=== PATIENT | male | born 1985 | race Two or more races ===

== ENCOUNTER 2016-12-15 05:47 | Emergency (ER) | payer OTHER ==
[~2016-12-15] VITALS: Ht 177.8 cm; Wt 77.1 kg
[~2016-12-15 05:47] MED LIST: [UNRECOGNIZED DRUG - OTHER]; [UNRECOGNIZED DRUG - OTHER] PO
--- NOTE | 2016-12-15 06:00 | NUR ---
To bed 2 a 31 yo male bibself with c/o of chronic lower back pain at 8/10, worse today as he has difficulty ambulating, with history of herniated disc dx 10 years ago, positive CMS. Patient is aaox4. No s/s of acute distress. Breathing even and unlabored. Comfort measures initiated. Awaiting for er md berkowitz.
--- NOTE | 2016-12-15 06:40 | NUR ---
Dr Cannon at bedside.
[2016-12-15] MEDS ORDERED: HYDROCODONE/APAP 5/325MG 1 EACH TABLET ONE (06:47)
[2016-12-15] MEDS ORDERED: KETOROLAC TROMETHAMINE INJ 30 MG/ML VIAL ONE (06:47)
[2016-12-15] MEDS: HYDROCODONE/APAP 5/325MG 1 EACH TABLET PO ONE (06:57)
[2016-12-15] MEDS: KETOROLAC TROMETHAMINE INJ 60 MG/2 ML VIAL IM ONE (06:57)
--- NOTE | 2016-12-15 07:12 | NUR ---
Report given to michael OLEARY for [facility].
--- NOTE | 2016-12-15 07:23 | NUR ---
Patient on bed, awake. vss
[2016-12-15 07:55] LABS: APPEARANCE,URINE SL CLOUDY (CLEAR); BILIRUBIN,URINE NEGATIVE (NEGATIVE); BLOOD, URINE NEGATIVE Ery/uL (NEGATIVE); COLOR,URINE YELLOW (YELLOW); KETONES,URINE 1+ (NEGATIVE); LEUKOCYTE ESTERASE ,URINE NEGATIVE (NEGATIVE); NITRITE, URINE NEGATIVE (NEGATIVE); PROTEIN,URINE TRACE mg/dl (NEGATIVE); UGLUCOSE NEGATIVE (NEGATIVE)
[2016-12-15 08:00] LABS: RBC,URINE NONE SEEN /HPF (0-2)
[2016-12-15 08:01] LABS: ADD URINE CULTURE NO; BACTERIA,URINE Few /HPF (None Seen); SQUAMOUS EPITHELIAL CELL,UR Few /HPF (None Seen); WBC,URINE 0-2 /HPF (0-3)
[2016-12-15 08:15] VITALS: BP 110/70
--- NOTE | 2016-12-15 08:15 | NUR ---
Patient discharged to home in stable condition. Written and verbal after care instructions given. Patient verbalizes understanding of instruction.
== END 2016-12-15 08:17 | disposition home or self-care (01) ==
LOC: ER 05:51
DX: S39.012A Strain of muscle, fascia and tendon of lower back, initial encounter (principal); E78.5 Hyperlipidemia, unspecified; X58.XXXA Exposure to other specified factors, initial encounter; Y92.89 Other specified places as the place of occurrence of the external cause; Y93.89 Activity, other specified; Y99.8 Other external cause status
CPT/HCPCS: 81000-TC; A4606; J1885; Z7610

== ENCOUNTER 2017-01-07 10:53 | Emergency (ER) | payer OTHER ==
[~2017-01-07] VITALS: Ht 172.7 cm; Wt 68.0 kg
[2017-01-07 11:07] VITALS: BP 126/82
== END 2017-01-07 12:02 | disposition home or self-care (01) ==
LOC: ER 10:55
DX: H81.10 Benign paroxysmal vertigo, unspecified ear (principal); E78.5 Hyperlipidemia, unspecified
CPT/HCPCS: 99283; A4606; Z7610

== ENCOUNTER 2018-03-23 16:33 | Emergency (ER) | payer OTHER ==
[~2018-03-23] VITALS: Ht 172.7 cm; Wt 68.0 kg
[2018-03-23 16:35] VITALS: BP 122/76
== END 2018-03-23 17:39 | disposition home or self-care (01) ==
LOC: ER 16:34
DX: F41.0 Panic disorder [episodic paroxysmal anxiety] (principal); E78.5 Hyperlipidemia, unspecified; G89.29 Other chronic pain; F32.9 Major depressive disorder, single episode, unspecified; F41.9 Anxiety disorder, unspecified
CPT/HCPCS: 93005; 99284; A4606; Z7610

== ENCOUNTER 2018-05-23 21:55 | Emergency (ER) | payer OTHER ==
--- NOTE | 2018-05-23 23:35 | NUR ---
called for triage, no response, pt physically not in waiting room
== END 2018-05-23 23:47 | disposition home or self-care (01) ==
LOC: ER 21:57
DX: Z53.21 Procedure and treatment not carried out due to patient leaving prior to being seen by health care provider (principal)

== ENCOUNTER 2019-06-24 13:37 | Emergency (ER) | payer OTHER ==
[~2019-06-24] VITALS: Ht 172.7 cm; Wt 67.1 kg
[2019-06-24 13:45] VITALS: BP 122/88
[2019-06-24] MEDS ORDERED: LIDOCAINE VISCOUS 2% UD 15 ML UDC ONE (14:26)
[2019-06-24] MEDS ORDERED: IBUPROFEN 600 MG TABLET PO ONE (14:26)
[2019-06-24] MEDS ORDERED: IBUPROFEN 400 MG TABLET PO ONE (14:30)
[2019-06-24] MEDS ORDERED: LIDOCAINE VISCOUS 2% UD 15 ML UDC MM ONE (14:30)
== END 2019-06-24 15:21 | disposition home or self-care (01) ==
LOC: ER 13:37
DX: J02.9 Acute pharyngitis, unspecified (principal); G89.29 Other chronic pain; F32.9 Major depressive disorder, single episode, unspecified; F41.9 Anxiety disorder, unspecified; E78.5 Hyperlipidemia, unspecified
CPT/HCPCS: 86403-TC

== ENCOUNTER 2019-11-07 15:13 | Emergency (ER) | payer OTHER ==
[~2019-11-07] VITALS: Ht 172.7 cm; Wt 67.1 kg
--- NOTE | 2019-11-07 15:35 | NUR ---
ANXIETY, DEPRESSION, AND SUICIDAL THOUGHTS. REPORTS ATTEMPT TO SWALLOW PILLS (EXCEDRIN) PRODUCTION INSPECTOR, BUT WAS UNABLE TO. STATES HE HAS BEEN SEEKING HELP FOR A LONG TIME AND WOULD LIKE TO BE ADMITTED TO PSYCH VOLUNTARILY. DENIES HI, DENIES AUDIO/VISUAL HALLUCINATIONS. ALSO REPORTS SOME BACK PAIN FROM HERNIATED DISK. NO OTHER COMPLAINTS AT THIS TIME. PT IS AOX4, VSS, RR EVEN AND UNLABORED ON RA. NO ACUTE DISTRESS NOTED. SUICIDE PRECAUTIONS IMPLEMENTED: PT WANDED BY SECURITY, CHANGED TO GOWN, BELONGINGS REMOVED FROM BEDSIDE. SEEN BY SARA MTZ. READY FOR MD CONTRERAS.
--- NOTE | 2019-11-07 16:00 | NUR ---
Social service consult requested by CRN for suicidal ideations with a plan. SAVI and RN Kimbelryn met with the pt bedside. DITTO MACHINE OPERATOR introduced self and purpose of visit. Pt is alert and oriented x 4. Pt appears well groomed and is pleasant. Pt resides with his cousin at [id number] [place] [address] in [place]. Pt reports he is feeling depressed, suicidal and wants to get help. Pt reports to have a psychiatric diagnosis of Depression and Anxiety. Pt is not seeing a psychiatrist currently. Pt is unable to state the name of his medications and stated his cousin gets it from him. Pt denies any alcohol, drugs and tobacco use. Pt reports in the past he has been unable to get out of bed and has been feeling hopeless. Pt is willing to go voluntary to a psychiatric hospital. DITTO MACHINE OPERATOR contacted Cristobal and [facility] and initiated the transfer process. Per Cristobal they will have a bed available for the pt. DITTO MACHINE OPERATOR updated CRN Gener in ED. Clinicals to be faxed to [facility] intake when available. DITTO MACHINE OPERATOR provided pt with active listening and supportive counseling. No other social service needs are requested at this time.
--- NOTE | 2019-11-07 16:15 | NUR ---
URINE SENT TO STAT LAB
[2019-11-07 16:38] LABS: BASOPHILS # (AUTO) 0.1 /CMM (0.0-0.2); BASOPHILS % (AUTO) 1.2 % (0.0-2.0); EOSINOPHILS % (AUTO) 2.4 % (0.0-6.0); HEMATOCRIT 52 % (39-51); HEMOGLOBIN 17.6 g/dL (13.5-17.5); LYMPHOCYTES # (AUTO) 2.1 /CMM (0.8-4.8); LYMPHOCYTES % (AUTO) 32.1 % (20.0-44.0); MEAN CORPUSCULAR HGB CONC 34 g/dl (31.0-36.0); MEAN CORPUSCULAR VOLUME 93 fL (80-96); MONOCYTES # (AUTO) 0.4 /CMM (0.1-1.30); MONOCYTES % (AUTO) 6.3 % (2.0-12.0); NEUTROPHILS # (AUTO) 3.8 /CMM (1.8-8.9); PLATELET COUNT (AUTO) 258 /CMM (150-450); RED BLOOD CELL COUNT(AUTO) 5.64 MIL/uL (4.5-6.0); WHITE BLOOD COUNT (AUTO) 6.5 K/uL (4.3-11.0)
[2019-11-07 16:49] LABS: APPEARANCE,URINE Clear (CLEAR); BILIRUBIN,URINE Negative (NEGATIVE); BLOOD, URINE Negative Ery/uL (NEGATIVE); COLOR,URINE Yellow (YELLOW); KETONES,URINE Negative (NEGATIVE); LEUKOCYTE ESTERASE ,URINE Negative (NEGATIVE); NITRITE, URINE Negative (NEGATIVE); PH,URINE 6.5 (5.0-8.0); PROTEIN,URINE Negative (NEGATIVE); UGLUCOSE Negative (NEGATIVE); UROBILINOGEN,URINE 0.2 EU/dL (0.2)
[2019-11-07 16:52] LABS: CALCIUM, SERUM 9.4 mg/dL (8.5-10.1); CARBON DIOXIDE 30 mmol/L (21-32); CHLORIDE 102 mmol/L (98-107); CREATININE 0.9 mg/dL (0.6-1.3); GLUCOSE 85 mg/dL (74-106); POTASSIUM 3.6 mmol/L (3.5-5.1); SODIUM SERUM 141 mmol/L (136-145); UREA NITROGEN, BLOOD 23 mg/dL (7-18)
[2019-11-07 17:10] LABS: ALANINE AMINOTRANSFERASE 71 U/L (12-78); ALBUMIN 4.6 g/dL (3.4-5.0); ALCOHOL, BLOOD < 3 mg/dL (0-0); ALKALINE PHOSPHATASE 81 U/L (46-116); ASPARTATE AMINOTRANSFERASE 56 U/L (15-37); BILIRUBIN,DIRECT 0.1 mg/dL (0.0-0.2); BILIRUBIN,TOTAL 0.5 mg/dL (0.2-1.0); TOTAL PROTEIN, SERUM 8.4 g/dL (6.4-8.2)
[2019-11-07 17:12] LABS: ACETAMINOPHEN < 2 ug/ml (10-30); SALICYLATE 0.8 mg/dL (2.8-20.0)
--- NOTE | 2019-11-07 17:22 | NUR ---
Patient is resting comfortably in bed. NO COMPLAINTS AT THIS TIME. VSS
--- NOTE | 2019-11-07 18:04 | NUR ---
CALLED [facility] [phone] FAXING CLINICALS TO [phone]
--- NOTE | 2019-11-07 18:11 | NUR ---
FAXED LABS AND CLINICALS TO [phone]
--- NOTE | 2019-11-07 18:45 | NUR ---
SPOKE WITH PT'S COUSIN MOHAMUD TO UPDATE, PER PT REQUEST
--- NOTE | 2019-11-07 18:58 | NUR ---
CALLED ASHIA AT [facility] VN INTAKE. THEY ARE REVIEWING AND WILL CONTACT US IN ABOUT AN HOUR. [phone]
--- NOTE | 2019-11-07 19:56 | NUR ---
COUSIN AT BEDSIDE
--- NOTE | 2019-11-07 21:23 | NUR ---
PT SITTING COMFORTABLY IN BED. NO COMPLAINTS AT THIS TIME. VSS. WILL CONT TO MONITOR.
--- NOTE | 2019-11-07 22:20 | NUR ---
PT ACCEPTED TO [facility] [address] SCHMIDT. # FOR REPORT [phone]
--- NOTE | 2019-11-07 22:30 | NUR ---
CALLED [facility] TO GIVE REPORT. INTAKE NOT YET AVAILABLE. WILL CALL BACK
--- NOTE | 2019-11-07 22:41 | NUR ---
REPORT GIVEN TO ANIRUDH DIXON Addendum: 11/07/19 at 2312 by JOSÉ MIGUEL NED MOLINA
--- NOTE | 2019-11-07 23:26 | NUR ---
CALLED ([id number]). AWAITING FOR CALL BACK FOR TRANSPORTATION INFO
--- NOTE | 2019-11-08 02:03 | NUR ---
[facility] ETA [phone]
[2019-11-08 02:45] VITALS: BP 124/84
--- NOTE | 2019-11-08 04:35 | NUR ---
REPORT GIVEN TO EMS. PT STABLE FOR ML
== END 2019-11-08 04:50 ==
LOC: ER 15:20
DX: R45.851 Suicidal ideations (principal); E78.5 Hyperlipidemia, unspecified; G89.29 Other chronic pain; F32.9 Major depressive disorder, single episode, unspecified; F41.9 Anxiety disorder, unspecified; Z79.899 Other long term (current) drug therapy
CPT/HCPCS: 36415; 80048; 80076; 80305; 80307; 80329; 81001; 85025; 99285; G0480; 81000-TC